=== PATIENT | male | born 2000 ===

== ENCOUNTER 2020-12-11 17:18 | Emergency (ER) | payer SELFPAY ==
[~2020-12-11] VITALS: Ht 165.1 cm; Wt 54.9 kg
[2020-12-11 17:42] VITALS: BP 135/92
--- NOTE | 2020-12-11 17:44 | NUR ---
THE PATIENT IS [id number] FRM OUTSIDE A HOUSE FEELING "[id number]" S/P SMOKING WEED. THE PATIENT C/O BEING TIRED AT THIS TIME. ALERT AND ORIENTED X4. DENIES PAIN. IN ROOM AIR AND DENIES SOB. RESPIRATION REGULAR AND UNLABORED. WILL CONTINUE TO MONITOR THE PATIENT.
--- NOTE | 2020-12-11 19:31 | NUR ---
Patient discharged to home in stable condition. Written and verbal after care instructions given. Patient verbalizes understanding of instruction. Pt ambulatory with a steady gait
== END 2020-12-11 19:31 | disposition home or self-care (01) ==
LOC: ER 17:27
DX: F41.9 Anxiety disorder, unspecified (principal); F12.90 Cannabis use, unspecified, uncomplicated